=== PATIENT | male | born 1960 | race Caucasian/White ===

== ENCOUNTER 2021-02-23 19:37 | Emergency (ER) | payer SELFPAY ==
[~2021-02-23] VITALS: Ht 165.1 cm; Wt 64.9 kg
[2021-02-23 19:40] VITALS: BP 159/96
--- NOTE | 2021-02-23 19:50 | ED Chest Pain ---
General Stated Complaint: CHEST PAIN, SORE THROAT Source: patient Exam Limitations: no limitations History of Present Illness Date Seen by Provider: Feb 23, 2021 Physical Exam Vital Signs Vital Signs - First Documented 02/23/21 19:40 Temp 36.4 Pulse 88 Resp 12 B/P (MAP) 159/96 (117) Pulse Ox 96 O2 Delivery Room Air Capillary Refill : Height, Weight, BMI Height: '" Weight: lbs. oz. kg; BMI Method: Progress/Results/Core Measures Results/Orders Lab Results Laboratory Tests Test 02/23/21 19:55 Range/Units White Blood Count 6.4 4.3-11.0 10^3/uL Red Blood Count 4.33 4.30-5.52 10^6/uL Hemoglobin 15.3 13.3-17.7 g/dL Hematocrit 44 40-54 % Mean Corpuscular Volume 101 H 80-99 fL Mean Corpuscular Hemoglobin 35 H 25-34 pg Mean Corpuscular Hemoglobin Concent 35 32-36 g/dL Red Cell Distribution Width 11.6 10.0-14.5 % Platelet Count 274 130-400 10^3/uL Mean Platelet Volume 9.7 9.0-12.2 fL Immature Granulocyte % (Auto) 1 % Neutrophils (%) (Auto) 37 L 42-75 % Lymphocytes (%) (Auto) 48 H 12-44 % Monocytes (%) (Auto) 11 0-12 % Eosinophils (%) (Auto) 3 0-10 % Basophils (%) (Auto) 1 0-10 % Neutrophils # (Auto) 2.4 1.8-7.8 10^3/uL Lymphocytes # (Auto) 3.1 1.0-4.0 10^3/uL Monocytes # (Auto) 0.7 0.0-1.0 10^3/uL Eosinophils # (Auto) 0.2 0.0-0.3 10^3/uL Basophils # (Auto) 0.1 0.0-0.1 10^3/uL Immature Granulocyte # (Auto) 0.0 0.0-0.1 10^3/uL Sodium Level 141 135-145 MMOL/L Potassium Level 3.6 3.6-5.0 MMOL/L Chloride Level 104 98-107 MMOL/L Carbon Dioxide Level 25 21-32 MMOL/L Anion Gap 12 5-14 MMOL/L Blood Urea Nitrogen 3 L 7-18 MG/DL Creatinine 0.76 0.60-1.30 MG/DL Estimat Glomerular Filtration Rate > 60 BUN/Creatinine Ratio 4 Glucose Level 99 70-105 MG/DL Calcium Level 9.3 8.5-10.1 MG/DL Corrected Calcium 9.1 8.5-10.1 MG/DL Magnesium Level 2.2 1.6-2.4 MG/DL Total Bilirubin 0.3 0.1-1.0 MG/DL Aspartate Amino Transf (AST/SGOT) 65 H 5-34 U/L Alanine Aminotransferase (ALT/SGPT) 49 0-55 U/L Alkaline Phosphatase 91 40-136 U/L Myoglobin 18.4 10.0-92.0 NG/ML Troponin I < 0.028 <0.028 NG/ML Total Protein 7.5 6.4-8.2 GM/DL Albumin 4.2 3.2-4.5 GM/DL Serum Alcohol 357 *H <10 MG/DL Influenza Type A (RT-PCR) Not Detected Not Detecte Influenza Type B (RT-PCR) Not Detected Not Detecte SARS-CoV-2 RNA (RT-PCR) Not Detected Not Detecte My Orders Orders - SAPNA LEVY APRN Ekg Tracing (02/23/21 19:44) Cbc With Automated Diff (02/23/21 19:51) Magnesium (02/23/21 19:51) Chest 1 View, Ap/Pa Only (02/23/21 19:51) Comprehensive Metabolic Panel (02/23/21 19:51) Myoglobin Serum (02/23/21 19:51) Protime With Inr (02/23/21 19:51) Partial Thromboplastin Time (02/23/21 19:51) O2 (02/23/21 19:51) Monitor-Rhythm Ecg Trace Only (02/23/21 19:51) Ed Iv/Invasive Line Start (02/23/21 19:51) Fibrin Degradation Products (02/23/21 19:51) Troponin I (02/23/21 19:51) Covid 19 Inhouse Test (02/23/21 19:53) Influenza A And B By Pcr (02/23/21 19:53) Alcohol (02/23/21 20:13) Vital Signs/I&O 02/23/21 19:40 Temp 36.4 Pulse 88 Resp 12 B/P (MAP) 159/96 (117) Pulse Ox 96 O2 Delivery Room Air Progress Progress Note : Progress Note Patient examined and in no acute distress. States that his friend on Facebook said that he had a sore throat for an extended period of time and for not he had tongue cancer. States that he is concerned this might be the case. His chest pain and complaints have been going on for several months. However we will continue to initiate a cardiac work-up. States that he does not trust medications not even "aspirin". However he is very familiar with marijuana, Valium, Xanax these are medications that he trust however he does not have a prescription for them. States that he drinks a six-pack of beer a day however he is slurring his words and appears to be acutely intoxicated. We will add EtOH to his lab work. 2051: Patient walked out of his room states "I am done" and walked out of the emergency department he was stopped in the lobby to have his IV removed. Declined to sign AMA paperwork. Departure Impression Primary Impression: Acute alcoholic intoxication Additional Impression: Sore throat Disposition: HOME, SELF-CARE Condition: Against Medical Advice Departure-Patient Inst. Decision time for Depature: 20:52 Patient Instructions: Alcohol Intoxication ED Add. Discharge Instructions: Plan: 1. Follow up with your primary care provider if your symptoms persist. 2. You can try over the counter allergy medication such as Zyrtec or Claritin. 3. Return to ER for any new, concerning, or worsening symptoms. SAPNA LEVY CREATIVE ART THERAPIST Feb 23, 2021 19:50
[2021-02-23 20:11] LABS: BASOPHILS # (AUTO) 0.1 10^3/uL (0.0-0.1); BASOPHILS % (AUTO) 1 % (0-10); EOSINOPHILS # (AUTO) 0.2 10^3/uL (0.0-0.3); EOSINOPHILS % (AUTO) 3 % (0-10); HEMATOCRIT 44 % (40-54); HEMOGLOBIN 15.3 g/dL (13.3-17.7); LYMPHOCYTES # (AUTO) 3.1 10^3/uL (1.0-4.0); LYMPHOCYTES % (AUTO) 48 % (12-44); MEAN CORPUSCULAR HEMOGLOBIN 35 pg (25-34); MEAN CORPUSCULAR HGB CONC 35 g/dL (32-36); MEAN CORPUSCULAR VOLUME 101 fL (80-99); MEAN PLATELET VOLUME 9.7 fL (9.0-12.2); MONOCYTES # (AUTO) 0.7 10^3/uL (0.0-1.0); MONOCYTES % (AUTO) 11 % (0-12); NEUTROPHILS # (AUTO) 2.4 10^3/uL (1.8-7.8); NEUTROPHILS % (AUTO) 37 % (42-75); PLATELET COUNT 274 10^3/uL (130-400); WHITE BLOOD COUNT 6.4 10^3/uL (4.3-11.0)
[2021-02-23 20:35] LABS: ALANINE AMINOTRANSFERASE 49 U/L (0-55); ALBUMIN 4.2 GM/DL (3.2-4.5); ALKALINE PHOSPHATASE 91 U/L (40-136); BILIRUBIN,TOTAL 0.3 MG/DL (0.1-1.0); BUN/CREATININE RATIO 4; CALCIUM 9.3 MG/DL (8.5-10.1); CARBON DIOXIDE 25 MMOL/L (21-32); CHLORIDE 104 MMOL/L (98-107); CREATININE SERUM 0.76 MG/DL (0.60-1.30); GFR ESTIMATED > 60; GLUCOSE 99 MG/DL (70-105); MAGNESIUM 2.2 MG/DL (1.6-2.4); POTASSIUM 3.6 MMOL/L (3.6-5.0); SODIUM 141 MMOL/L (135-145); TOTAL PROTEIN 7.5 GM/DL (6.4-8.2)
== END 2021-02-23 20:52 | disposition home or self-care (01) ==
LOC: ER 19:46
DX: F10.129 Alcohol abuse with intoxication, unspecified (principal); R07.0 Pain in throat; Z20.822 Contact with and (suspected) exposure to COVID-19
CPT/HCPCS: 80053; 83735; 83874; 84484; 85025; 87636; 93005; 93041; 99284; G0480; 36415; 80320

== ENCOUNTER 2022-12-07 14:35 | Emergency (ER) | payer BC ==
[~2022-12-07] VITALS: Ht 165.1 cm; Wt 63.5 kg
[~2022-12-07 14:35] MED LIST: ASPI-999 PO; CLOP75TA28 PO
--- NOTE | 2022-12-07 14:55 | ED Chest Pain ---
General Stated Complaint: CHEST PAINS Source: patient Exam Limitations: no limitations History of Present Illness Date Seen by Provider: Dec 07, 2022 Time Seen by Provider: 14:40 Initial Comments 62-year-old male presents the ED with complaints of left-sided chest pain which has been constant for the last couple of days. He states the pain has not let up since it started. He reports he was sitting at work when the pain started. Describes the pain as a dull pain, denies pressure. Denies radiation of the pain. Denies diaphoresis. He does report feeling lightheaded and dizzy, and weak. Reports some shortness of air. Also reports nausea and right lower quadrant abdominal pain. Past medical history includes coronary artery disease. He does have a cardiac stent which was placed after a positive stress test. He currently does not take any medications. His medication list includes aspirin and Plavix, patient states he did not know he supposed be taking this. He has not followed-up with Dr. Mccain, web programmer, in a while. He reports he is an alcoholic, states he drinks 3 beers a day. He states he smokes cigarettes, only 1-2 every night. He reports use marijuana occasionally, last use was a month ago. Allergies and Home Medications Allergies Coded Allergies: No Known Drug Allergies (Unverified , 03/06/22) Patient Home Medication List Home Medication List Reviewed: Yes Aspirin (Aspirin) 81 Mg Tab.chew, 81 MG PO DAILY Prescribed by: ADALID PERALTA on 03/08/22 09 Clopidogrel Bisulfate (Clopidogrel) 75 Mg Tablet, 75 MG PO DAILY Prescribed by: ADALID PERALTA on 03/08/22938 Clopidogrel Bisulfate (Clopidogrel) 75 Mg Tablet, 75 MG PO DAILY Prescribed by: Emmanuelle Bolivar on 12/07/22 1708 Review of Systems Review of Systems Constitutional: see HPI Past Oysftzm-Vhuylg-Kpxezt Hx Immunizations Up To Date First/Initial COVID19 Vaccinat: STATES ONE DOSE MAR 2021 Past Medical History Surgery/Hospitalization HX: CARDIAC STENT MARCH 2021 Physical Exam Vital Signs Vital Signs - First Documented 12/07/22 14:35 Temp 36.4 Pulse 67 Resp 19 B/P (MAP) 148/87 (107) Pulse Ox 100 O2 Delivery Room Air Capillary Refill : Height, Weight, BMI Height: '" Weight: lbs. oz. kg; 22.23 BMI Method: General Appearance: No Apparent Distress, WD/WN Neck: Non Tender, Supple Respiratory: Chest Non Tender, Lungs Clear, Normal Breath Sounds, No Accessory Muscle Use, No Respiratory Distress Cardiovascular: Regular Rate, Rhythm, No Edema, No Gallop, No JVD, No Murmur Gastrointestinal: Non Tender, Soft Extremity: Normal Inspection, Normal Range of Motion Neurologic/Psychiatric: Alert, Normal Mood/Affect Skin: Normal Color, Warm/Dry Progress/Results/Core Measures Results/Orders Lab Results Laboratory Tests Test 12/07/22 14:40 12/07/22 15:02 Range/Units White Blood Count 9.5 4.3-11.0 10^3/uL Red Blood Count 3.82 L 4.30-5.52 10^6/uL Hemoglobin 13.9 13.3-17.7 g/dL Hematocrit 39 L 40-54 % Mean Corpuscular Volume 102 H 80-99 fL Mean Corpuscular Hemoglobin 36 H 25-34 pg Mean Corpuscular Hemoglobin Concent 36 32-36 g/dL Red Cell Distribution Width 12.0 10.0-14.5 % Platelet Count 216 130-400 10^3/uL Mean Platelet Volume 10.0 9.0-12.2 fL Immature Granulocyte % (Auto) 0 % Neutrophils (%) (Auto) 75 42-75 % Lymphocytes (%) (Auto) 17 12-44 % Monocytes (%) (Auto) 7 0-12 % Eosinophils (%) (Auto) 0 0-10 % Basophils (%) (Auto) 1 0-10 % Neutrophils # (Auto) 7.2 1.8-7.8 10^3/uL Lymphocytes # (Auto) 1.6 1.0-4.0 10^3/uL Monocytes # (Auto) 0.7 0.0-1.0 10^3/uL Eosinophils # (Auto) 0.0 0.0-0.3 10^3/uL Basophils # (Auto) 0.1 0.0-0.1 10^3/uL Immature Granulocyte # (Auto) 0.0 0.0-0.1 10^3/uL Prothrombin Time 12.9 12.2-14.7 SEC INR Comment 0.9 0.8-1.4 Activated Partial Thromboplast Time 31 24-35 SEC D-Dimer 1.17 H 0.00-0.49 UG/ML Sodium Level 136 135-145 MMOL/L Potassium Level 3.4 L 3.6-5.0 MMOL/L Chloride Level 101 98-107 MMOL/L Carbon Dioxide Level 19 L 21-32 MMOL/L Anion Gap 16 H 5-14 MMOL/L Blood Urea Nitrogen 4 L 7-18 MG/DL Creatinine 0.69 0.60-1.30 MG/DL Estimat Glomerular Filtration Rate 106 BUN/Creatinine Ratio 6 Glucose Level 111 H 70-105 MG/DL Calcium Level 8.5 8.5-10.1 MG/DL Corrected Calcium 8.9 8.5-10.1 MG/DL Magnesium Level 1.8 1.6-2.4 MG/DL Total Bilirubin 0.9 0.1-1.0 MG/DL Aspartate Amino Transf (AST/SGOT) 64 H 5-34 U/L Alanine Aminotransferase (ALT/SGPT) 38 0-55 U/L Alkaline Phosphatase 108 40-136 U/L Myoglobin 22.3 10.0-92.0 NG/ML Troponin I < 0.028 <0.028 NG/ML B-Type Natriuretic Peptide 14.1 <100.0 PG/ML Total Protein 6.5 6.4-8.2 GM/DL Albumin 3.5 3.2-4.5 GM/DL Serum Alcohol 63 H <10 MG/DL Urine Color YELLOW Urine Clarity CLEAR Urine pH 7.5 5-9 Urine Specific [place] <=1.005 1.016-1.022 Urine Protein NEGATIVE NEGATIVE Urine Glucose (UA) NEGATIVE NEGATIVE Urine Ketones NEGATIVE NEGATIVE Urine Nitrite NEGATIVE NEGATIVE Urine Bilirubin NEGATIVE NEGATIVE Urine Urobilinogen 1.0 < = 1.0 MG/DL Urine Leukocyte Esterase NEGATIVE NEGATIVE Urine RBC (Auto) NEGATIVE NEGATIVE Urine RBC NONE /HPF Urine WBC NONE /HPF Urine Squamous Epithelial Cells NONE /HPF Urine Crystals NONE /LPF Urine Bacteria NEGATIVE /HPF Urine Casts NONE /LPF Urine Mucus NEGATIVE /LPF Urine Culture Indicated NO My Orders Orders - EMMANUELLE BOLIVAR APRN Cbc With Automated Diff (12/07/22 14:48) Magnesium (12/07/22 14:48) Chest 1 View, Ap/Pa Only (12/07/22 14:48) Ekg Tracing (12/07/22 14:48) Comprehensive Metabolic Panel (12/07/22 14:48) Protime With Inr (12/07/22 14:48) Partial Thromboplastin Time (12/07/22 14:48) Monitor-Rhythm Ecg Trace Only (12/07/22 14:48) Ed Iv/Invasive Line Start (12/07/22 14:48) Bnp Víctor (12/07/22 14:48) Fibrin Degradation Products (12/07/22 14:48) Troponin I [place] (12/07/22 14:48) Aspirin Chewable Tablet (Baby Aspirin Ch (12/07/22 15:00) Ua Culture If Indicated (12/07/22 14:48) Myoglobin Serum (12/07/22 14:48) O2 (12/07/22 14:48) Ed Iv/Invasive Line Start (12/07/22 14:48) Nitroglycerin 0.4 Mg Btl 25's (Nitrostat (12/07/22 15:00) Ns Iv 1000 Ml (Sodium Chloride 0.9%) (12/07/22 15:00) Alcohol (12/07/22 15:09) Iohexol Injection (Omnipaque 350 Mg/Ml 1 (12/07/22 15:30) Received Contrast (Hold Metformin- Contr (12/07/22 15:30) Ns (Ivpb) (Sodium Chloride 0.9% Ivpb Bag (12/07/22 15:30) Ct Angio Chest/Abd W (12/07/22 15:21) Fentanyl Inj (Sublimaze Injection) (12/07/22 16:30) Clopidogrel Tablet (Plavix Tablet) (12/07/22 17:00) Medications Given in ED Vital Signs/I&O 12/07/22 12/07/22 12/07/22 14:35 14:35 17:20 Temp 36.4 Pulse 67 65 Resp 19 18 B/P (MAP) 148/87 (107) 142/85 Pulse Ox 100 98 O2 Delivery Room Air Room Air Room Air Progress Progress Note : Time: 15:09 Progress Note Patient seen and evaluated, resting in bed, no acute distress. Based on exam and symptoms, work-up initiated including CBC, CMP, magnesium, troponin, D- dimer, BNP, alcohol level, UA, chest x-ray, EKG. IV fluids, nitroglycerin, and aspirin ordered. 1522 labs reviewed. CBC shows slightly decreased RBC 3.82, normal hemoglobin 13.9, slightly decreased hematocrit 39, elevated MCV 102. CMP shows slightly decreased potassium 3.4, slightly decreased CO2 19, slightly increased gap 16, elevated AST 64. Troponin negative. BNP normal. Coags normal. D-dimer elevated 1.17. UA negative for infection. Alcohol level 63. Chest x-ray negative for acute cardiopulmonary process. CT angio chest and abdomen ordered. 1658 CT reviewed. No evidence of pulmonary embolism. There is a 3.5 cm infrarenal abdominal aortic aneurysm without evidence of rupture. Results discussed with patient. I will restart patient on his Plavix, and instruct him to start taking aspirin 81 mg [id number]. Patient instructed to call Dr. Mccain in the morning to schedule a follow-up appointment. Discharge instructions and return precautions provided. Initial ECG Impression Date: Dec 07, 2022 Initial ECG Impression Time: 14:39 Initial ECG Rate: 63 Initial ECG Rhythm: Normal Sinus Initial ECG Intervals: Normal Initial ECG Impression: Normal Initial ECG Comparisson: Unchanged Diagnostic Imaging Diagonstic Imaging: Xray Plain Films/CT/US/NM/MRI: chest Comments [facility]. [place], [place] NAME: GRABIEL SAEZ [facility] REC#: [id number] PT STATUS: REG ER : 1960 PHYSICIAN: EMMANUELLE BOLIVAR APRN ADMIT DATE: 12/07/22/ER Signed Date of Exam:12/07/22 CHEST 1 VIEW, AP/PA ONLY EXAMINATION: Chest radiograph, portable AP view. DATE: 12/07/2022 3:15 PM INDICATION: 62-year-old male, dizziness, confusion. COMPARISON: March 06, 2022. FINDINGS: Heart size and mediastinal contours are unchanged. There is no identified pneumothorax. There is no large pleural effusion. There is no identified focal airspace consolidation. IMPRESSION: 1. No identified acute cardiopulmonary abnormality. Dictated by: Dictated on workstation # [id number] Dict: 12/07/22 1531 Trans: 12/07/22 1617 [facility] [id number] Interpreted by: MARGARET MCDOWELL MD Electronically signed by: MARGARET MCDOWELL MD 12/07/22 6907 Diagonstic Imaging: CT Plain Films/CT/US/NM/MRI: chest, abdomen, pelvis Comments [facility]. [place], [place] NAME: GRABIEL SAEZ REC#: [id number] PT STATUS: REG ER : 1960 PHYSICIAN: EMMANUELLE BOLIVAR APRN ADMIT DATE: 12/07/22/ER Signed Date of Exam:12/07/22 CT ANGIO CHEST/ABD W PROCEDURE: CT angiography of the abdomen and chest with and without contrast. TECHNIQUE: After intravenous administration of contrast, thin section axial CT angiography of the abdomen and chest were obtained. 3D MIP reformats were provided. Auto Exposure Controls were utilized during the CT exam to meet ALARA standards for radiation dose reduction. INDICATION: Acute onset dyspnea with weakness and abdominal pain. Patient has elevated D-dimer levels. There is good opacification of the pulmonary arteries without intraluminal filling defect. Thoracic aorta is of normal caliber with atherosclerotic calcification. There is also coronary artery calcification. Lungs appear clear without evidence of significant pleural or pericardial fluid. There is no evidence of pathologically enlarged adenopathy. There is apparent old fracture deformity involving the inferior sternum. There is mild thoracic and lumbar spondylosis. There is low-density throughout the liver indicating steatosis without evidence of focal hepatic or splenic abnormality. There is no evidence of gallbladder, pancreatic, adrenal gland or splenic abnormality. Kidneys are also unremarkable. There is mild atherosclerotic disease within the upper abdominal aorta. Infrarenal abdominal aorta demonstrates moderate atherosclerotic disease with eccentric mural plaquing and aneurysmal dilatation reaching 3.5 cm in diameter. There is no evidence of retroperitoneal hematoma. There is no evidence of appendiceal inflammation. IMPRESSION: No CTA evidence of pulmonary embolism or other acute abnormality in the chest. Below the diaphragm, note is made of a 3.5 cm infrarenal abdominal aortic aneurysm without evidence of rupture. Note is also made of steatosis. Dictated by: Dictated on workstation # [id number] Dict: 12/07/22 1553 Trans: 12/07/221652 [facility] [id number] Interpreted by: JOSE SU MD Electronically signed by: JOSE SU MD 12/07/221652 Departure Impression Primary Impression: Chest pain Additional Impression: Abdominal aortic aneurysm Disposition: HOME, SELF-CARE Condition: Stable Departure-Patient Inst. Decision time for Depature: 16:59 Referrals: [facility] (PCP) Primary Care Physician JORJE MCCAIN MD FACP [facility] Patient Instructions: Chest Pain, Adult ED, Aortic Aneurysm (DC) Add. Discharge Instructions: Call Dr. Mccain in the morning to schedule a follow-up appointment for this week or next week. Start taking Plavix once a day. I will provide 30 days worth of Plavix, Dr. Mccain will refill this prescription for you. Get aspirin 81 mg [id number] and start taking once a day, every day. You need to stop smoking and stop drinking. Return for severe chest pain, worsening shortness of breath, severe abdominal pain, passing out, severe back pain, or any other new, concerning, or worsening symptoms. Scripts Clopidogrel Bisulfate (Clopidogrel) 75 Mg Tablet 75 MG PO DAILY for 30 Days, #30 TAB 0 Refills Prov: EMMANUELLE BOLIVAR APRN 12/07/22 EMMANUELLE BOLIVAR APRN Dec 07, 2022 14:55
[2022-12-07 14:57] LABS: BASOPHILS # (AUTO) 0.1 10^3/uL (0.0-0.1); BASOPHILS % (AUTO) 1 % (0-10); EOSINOPHILS % (AUTO) 0 % (0-10); HEMATOCRIT 39 % (40-54); HEMOGLOBIN 13.9 g/dL (13.3-17.7); LYMPHOCYTES # (AUTO) 1.6 10^3/uL (1.0-4.0); LYMPHOCYTES % (AUTO) 17 % (12-44); MEAN CORPUSCULAR HEMOGLOBIN 36 pg (25-34); MEAN CORPUSCULAR HGB CONC 36 g/dL (32-36); MEAN CORPUSCULAR VOLUME 102 fL (80-99); MONOCYTES # (AUTO) 0.7 10^3/uL (0.0-1.0); MONOCYTES % (AUTO) 7 % (0-12); NEUTROPHILS # (AUTO) 7.2 10^3/uL (1.8-7.8); NEUTROPHILS % (AUTO) 75 % (42-75); PLATELET COUNT 216 10^3/uL (130-400); WHITE BLOOD COUNT 9.5 10^3/uL (4.3-11.0)
[2022-12-07] MEDS ORDERED: NS IV 1000 ML 1,000 ML IV SCH (15:00)
[2022-12-07] MEDS ORDERED: NITROGLYCERIN 0.4 MG SL TABS BTL 25'S SL PRN (15:00)
[2022-12-07] MEDS ORDERED: ASPIRIN 81 MG CHEW (CHILDREN'S ASA) PO ONE (15:00)
[2022-12-07 15:02] LABS: INR 0.9 (0.8-1.4); PROTHROMBIN TIME PATIENT 12.9 SEC (12.2-14.7)
[2022-12-07 15:03] LABS: ALBUMIN 3.5 GM/DL (3.2-4.5); POTASSIUM 3.4 MMOL/L (3.6-5.0)
[2022-12-07 15:04] LABS: CALCIUM 8.5 MG/DL (8.5-10.1)
[2022-12-07 15:05] LABS: TOTAL PROTEIN 6.5 GM/DL (6.4-8.2)
[2022-12-07 15:07] LABS: BILIRUBIN,TOTAL 0.9 MG/DL (0.1-1.0)
[2022-12-07 15:09] LABS: BILIRUBIN,URINE NEGATIVE (NEGATIVE); CLARITY,URINE CLEAR; COLOR,URINE YELLOW; GLUCOSE, URINE (UA) NEGATIVE (NEGATIVE); KETONES,URINE NEGATIVE (NEGATIVE); LEUKOCYTE ESTERASE ,URINE NEGATIVE (NEGATIVE); NITRITE,URINE NEGATIVE (NEGATIVE); PH,URINE 7.5 (5-9); PROTEIN,URINE NEGATIVE (NEGATIVE)
[2022-12-07 15:09] LABS: CREATININE SERUM 0.69 MG/DL (0.60-1.30)
[2022-12-07 15:12] LABS: MAGNESIUM 1.8 MG/DL (1.6-2.4)
[2022-12-07] MEDS ORDERED: IOHEXOL 350 MG/ML 100 ML (OMNIPAQUE 350) VIAL IV ONE (15:30)
[2022-12-07] MEDS ORDERED: HOLD METFORMIN - RECEIVED CONTRAST 20 ML VIAL IV SCH (15:30)
[2022-12-07] MEDS ORDERED: NS 50 ML (IVPB) BAG IV ONE (15:30)
[2022-12-07 15:33] LABS: BACTERIA,URINE NEGATIVE /HPF
--- NOTE | 2022-12-07 15:34 | Diagnostic Imaging Report ---
EXAMINATION: Chest radiograph, portable AP view. DATE: 12/07/2022 3:15 PM INDICATION: 62-year-old male, dizziness, confusion. COMPARISON: March 06, 2022. FINDINGS: Heart size and mediastinal contours are unchanged. There is no identified pneumothorax. There is no large pleural effusion. There is no identified focal airspace consolidation. IMPRESSION: 1. No identified acute cardiopulmonary abnormality. Dictated by: Dictated on workstation # [id number]
--- NOTE | 2022-12-07 16:03 | Diagnostic Imaging Report ---
PROCEDURE: CT angiography of the abdomen and chest with and without contrast. TECHNIQUE: After intravenous administration of contrast, thin section axial CT angiography of the abdomen and chest were obtained. 3D MIP reformats were provided. Auto Exposure Controls were utilized during the CT exam to meet ALARA standards for radiation dose reduction. INDICATION: Acute onset dyspnea with weakness and abdominal pain. Patient has elevated D-dimer levels. There is good opacification of the pulmonary arteries without intraluminal filling defect. Thoracic aorta is of normal caliber with atherosclerotic calcification. There is also coronary artery calcification. Lungs appear clear without evidence of significant pleural or pericardial fluid. There is no evidence of pathologically enlarged adenopathy. There is apparent old fracture deformity involving the inferior sternum. There is mild thoracic and lumbar spondylosis. There is low-density throughout the liver indicating steatosis without evidence of focal hepatic or splenic abnormality. There is no evidence of gallbladder, pancreatic, adrenal gland or splenic abnormality. Kidneys are also unremarkable. There is mild atherosclerotic disease within the upper abdominal aorta. Infrarenal abdominal aorta demonstrates moderate atherosclerotic disease with eccentric mural plaquing and aneurysmal dilatation reaching 3.5 cm in diameter. There is no evidence of retroperitoneal hematoma. There is no evidence of appendiceal inflammation. IMPRESSION: No CTA evidence of pulmonary embolism or other acute abnormality in the chest. Below the diaphragm, note is made of a 3.5 cm infrarenal abdominal aortic aneurysm without evidence of rupture. Note is also made of steatosis. Dictated by: Dictated on workstation # [id number]
[2022-12-07] MEDS ORDERED: fentaNYL INJ 100 MCG/2 ML AMP IVP ONE (16:30)
[2022-12-07] MEDS ORDERED: CLOPIDOGREL 75 MG (PLAVIX) TABLET PO ONE (17:00)
[2022-12-07] MEDS ORDERED: CLOP75TA28 PO (17:08)
[2022-12-07 17:20] VITALS: BP 142/85
== END 2022-12-07 17:20 | disposition home or self-care (01) ==
LOC: EDUNIT# 14:35 → ER 14:37
DX: I71.40 Abdominal aortic aneurysm, without rupture, unspecified (principal); F17.210 Nicotine dependence, cigarettes, uncomplicated; Z95.5 Presence of coronary angioplasty implant and graft; Z79.02 Long term (current) use of antithrombotics/antiplatelets; Z79.82 Long term (current) use of aspirin
CPT/HCPCS: 71045; 71275; 74175; 80053; 81000; 83735; 83874; 83880; 84484; 85025; 85379; 85610; 85730; 93005; 93041; 99284; G0480; 36415; 80320